=== PATIENT | female | born 1990 | race Caucasian/White ===

== ENCOUNTER 2017-05-06 17:41 | Emergency (ER) | payer BC ==
[~2017-05-06] VITALS: Ht 175.3 cm; Wt 186.0 kg
[2017-05-06 17:46] VITALS: BP_SYST 157
--- NOTE | 2017-05-06 17:54 | NUR ---
Patient to ER bed 04 to gown for evaluation. Side rails up. Report given to Vamshi MACK
--- NOTE | 2017-05-06 18:00 | NUR ---
Patient to ED for eval of throat pain which radiates to her epigastric area. Patient denies pain at present-just wanted it to be checked out.
--- NOTE | 2017-05-06 18:21 | NUR ---
Dana WET END HELPER at bedside to evaluate patient
--- NOTE | 2017-05-06 18:45 | NUR ---
Patient given written and verbal discharge instructions and verbalizes understanding. ER MD discussed with patient the results and treatment provided. Patient in stable condition. ID arm band removed. Rx of Prilosec given. Patient educated on pain management and to follow up with PMD. Pain Scale 0/10. Opportunity for questions provided and answered.
== END 2017-05-06 18:46 | disposition home or self-care (01) ==
LOC: SED 17:41
DX: K21.9 Gastro-esophageal reflux disease without esophagitis (principal)
CPT/HCPCS: 93005; 99283

== ENCOUNTER 2020-09-09 19:37 | Emergency (ER) | payer BC, OTHER ==
[~2020-09-09] VITALS: Ht 175.3 cm; Wt 163.3 kg
[2020-09-09 19:44] VITALS: BP_SYST 155
--- NOTE | 2020-09-09 20:26 | NUR ---
Patient to ER bed [facility]RE[facility] to [facility] for evaluation. Side rails up. Report given to PAVEL MACK.
--- NOTE | 2020-09-09 20:26 | NUR ---
Received patient to Er w/ c/o chest pain described as dull/sharp "as if someone is punching my heart" ongoing x1 week (on/off but "constant on/off) non radiating. Introduced self to patient, positioned for comfort and safety w/ bed to low position. Patient resting quietly. No acute distress noted. Vital signs within normal range.
--- NOTE | 2020-09-09 20:36 | NUR ---
GENESIS Dobbs at bedside examining patient.
--- NOTE | 2020-09-09 21:13 | NUR ---
Patient given written and verbal discharge instructions and verbalizes understanding. ER MD discussed with patient the results and treatment provided. Patient in stable condition. ID arm band removed. no Rx of given. Patient educated on pain management and to follow up with PMD. Pain Scale 2/10. Opportunity for questions provided and answered. Medication side effect fact sheet provided.
[2020-09-09 21:18] VITALS: BP_SYST 146
== END 2020-09-09 21:18 | disposition home or self-care (01) ==
LOC: SED 19:37
DX: R07.9 Chest pain, unspecified (principal)
CPT/HCPCS: 71045; 93005; 99283

== ENCOUNTER 2023-05-08 11:36 | Emergency (ER) | payer OTHER ==
[~2023-05-08] VITALS: Ht 172.7 cm; Wt 68.9 kg
[2023-05-08 11:36] VITALS: BP_SYST 123; PULSE 92; RESP 18; TEMP 97.5; O2SAT 95
[2023-05-08] MEDS ORDERED: MORPHINE 4 MG INJ. 4 MG/ML VIAL IVP ONE (12:00)
[2023-05-08 12:23] LABS: BASOPHILS % (AUTO) 0.7 % (0.0-2.0); EOSINOPHILS # (AUTO) 0.2 K/uL (0.0-0.4); EOSINOPHILS % (AUTO) 4.1 % (0.0-4.0); HEMATOCRIT 47.3 % (36-48); HEMOGLOBIN 15.9 g/dL (12.0-16.0); LYMPHOCYTES # (AUTO) 1.5 K/uL (1.0-5.5); LYMPHOCYTES % (AUTO) 27.1 % (20.5-51.5); MEAN CORPUSCULAR HEMOGLOBIN 31 pg (27-31); MEAN CORPUSCULAR HGB CONC 34 % (32-36); MEAN CORPUSCULAR VOLUME 93 fL (79.0-98.0); MONOCYTES # (AUTO) 0.5 K/uL (0.0-1.0); MONOCYTES % (AUTO) 8.3 % (1.7-9.3); NEUTROPHILS # (AUTO) 3.3 K/uL (1.8-7.7); NEUTROPHILS % (AUTO) 59.8 % (40.0-70.0); PLATELET COUNT (AUTO) 272 K/uL (130-430); RED BLOOD CELL COUNT(AUTO) 5.11 MIL/uL (4.2-6.2); RED CELL DISTRIBUTION WIDTH 13.3 % (9.0-15.0); WHITE BLOOD COUNT (AUTO) 5.5 K/uL (4.8-10.8)
[2023-05-08 12:49] LABS: ALBUMIN 4.1 g/dL (3.4-4.8); CALCIUM 9.1 mg/dL (8.4-11.0); CREATININE 0.57 mg/dL (0.55-1.30); TOTAL BILIRUBIN 0.8 mg/dL (0.0-1.0)
[2023-05-08] MEDS ORDERED: NACL 0.9% 1,000 ML IV ONE (13:00)
[2023-05-08] MEDS ORDERED: SODIUM PHOSPHATE,MONO-DIBASIC 133 ML ENEMA RC ONE (13:15)
[2023-05-08] MEDS ORDERED: BISA10SU61 RC (14:10)
[2023-05-08] MEDS ORDERED: SENN-298 PO (14:10)
[2023-05-08] MEDS ORDERED: POLY119P2 PO (14:10)
[2023-05-08 14:37] VITALS: BP_SYST 123; PULSE 92; RESP 18; TEMP 97.5; O2SAT 95
== END 2023-05-08 14:37 | disposition home or self-care (01) ==
LOC: SED 11:36
DX: K59.00 Constipation, unspecified (principal); Z79.899 Other long term (current) drug therapy
CPT/HCPCS: 99284; 96360; 96361; 80053; 83690; 85025; 36415; 74018; J7030